=== PATIENT | male | born 1960 | race Caucasian/White ===

== ENCOUNTER → 2023-11-02 | Outpatient (CLI) | payer MEDICAID ==
[~2023-11-02] MED LIST: ALBU18HF2 INH; BENA20TA82 PO; GLIP10TA11 PO; HYDR12.55 PO; IBUP-1985 PO; INSU100I31 SQ; PANT40TA54 PO; QUET200T31 PO; TRIA60LO11 TOP; ZOLP10TA PO
== END | disposition home or self-care (01) ==
LOC: RAD 09:31
PROVIDERS: ATTEND Nurse Practitioner Family
DX: G31.84 Mild cognitive impairment of uncertain or unknown etiology (principal)
CPT/HCPCS: 70450

== ENCOUNTER 2025-03-19 08:41 | Outpatient (CLI) | payer MEDICAID ==
[~2025-03-19] VITALS: Ht 167 cm; Wt 74.4 kg
[~2025-03-19 08:41] MED LIST changes: -GLIP10TA11 PO; +GLIP10TA18 PO; -IBUP-1985 PO; +IBUP600T52 PO; +ZOLP-679 PO; -ZOLP10TA PO
[2025-03-19] MEDS: albuterol 2.5 MG/3 ML nebule NEB ONE (09:23)
[2025-03-19 09:24] VITALS: PULSE 92; RESP 16; O2SAT 99
[2025-03-19 09:37] VITALS: PULSE 100; RESP 15
--- NOTE | 2025-03-19 12:23 | PROCEDURE NOTE - Respiratory ---
Procedure Note-Respiratory Providers to CC Copies To 1: LEONIDAS GARDNER NP Procedure Name: This is a spirometry study dated March 19, 2025. The spirometry study was performed both before and after inhaled bronchodilator. A lung diffusion measurement was made as well. Spirometry measurements: Both the forced vital capacity and the FEV1 are in the normal range. The FEV1 ratio is mildly elevated. The flow rate measurements are excellent. After inhaled bronchodilator was administered, some of the flow rate measurements show very slight improvement. Lung diffusion measurement: The DLCO measurement is slightly reduced. It is noted that the KVO measurement and the alveolar volume measurements are within normal limits. Conclusion: Normal spirometry results. Borderline reduction in the DLCO measurement. The patient shows very slight improvement with inhaled bronchodilator. We have no previous studies for comparison. Continued use of Ventolin inhaler is recommended for this patient. It is recommended that this patient completely abstain from tobacco smoking and/or marijuana smoking. JENNY URBANO MD Mar 19, 2025 12:23
== END 2025-03-19 23:59 | disposition home or self-care (01) ==
LOC: RT 08:41
PROVIDERS: ATTEND Nurse Practitioner Family
DX: R06.02 Shortness of breath (principal)
CPT/HCPCS: 94060; 94729; 94760